=== PATIENT | male | born 1970 | race Caucasian/White ===

== ENCOUNTER 2019-07-16 14:33 | Emergency (ER) | payer OTHER ==
[~2019-07-16] VITALS: Ht 193 cm; Wt 127.0 kg
[2019-07-16] MEDS ORDERED: IBUPROFEN 600 MG TAB PO STA (14:44)
[2019-07-16] MEDS ORDERED: CLINDAMYCIN PHOS 900MG/ 50ML 50 ML IV ONE (14:44)
[2019-07-16] MEDS ORDERED: SODIUM CHLORIDE 0.9% 1000ML 1,000 ML IV SCH (14:45)
[2019-07-16] MEDS ORDERED: IBUPROFEN 400 MG TAB PO ONE (15:00)
[2019-07-16 15:05] LABS: BASOPHILS % 0.5 % (0.0-1.0); EOSINOPHILS % 0.2 % (0.0-6.0); HEMATOCRIT 44.3 % (38.2-49.6); HEMOGLOBIN 15.1 g/dL (14.0-18.0); LYMPHOCYTES # (AUTO) 0.5 (1.0-3.2); LYMPHOCYTES % 8.3 % (18.0-39.1); MEAN CORPUSCULAR HEMOGLOBIN 28.7 pg (28-32); MEAN CORPUSCULAR HGB CONC 34.1 g/dL (31-35); MEAN CORPUSCULAR VOLUME 84.2 fL (81-99); MONOCYTES # (AUTO) 0.3 (0.2-0.8); NEUTROPHILS # (AUTO) 5.3 (2.1-6.9); NEUTROPHILS % 85.4 % (38.7-80.0); PLATELET COUNT 233 x10e3/uL (140-360); RED BLOOD COUNT 5.26 x10e6/uL (4.3-5.7); RED CELL DISTRIBUTION WIDTH 13.4 % (11.7-14.4)
[2019-07-16 15:22] LABS: ANION GAP 12.8 mmol/L (8-16); BLOOD UREA NITROGEN 14 mg/dL (7-26); BUN/CREATININE RATIO 13 (6-25); CARBON DIOXIDE 27 mmol/L (22-29); CHLORIDE 101 mmol/L (98-107); CREATININE, SERUM 1.11 mg/dL (0.72-1.25); EST GLOMERULAR FILTRATION RATE > 60 ML/MIN (60-); GLUCOSE 107 mg/dL (74-118); POTASSIUM 3.8 mmol/L (3.5-5.1); SODIUM 137 mmol/L (136-145)
[2019-07-16] MEDS ORDERED: CLINDAMYCIN HC300 MG PO (15:30)
[2019-07-16 15:43] VITALS: BP 139/77
== END 2019-07-16 15:47 | disposition home or self-care (01) ==
LOC: ER 14:33
DX: L03.811 Cellulitis of head [any part, except face] (principal); R50.9 Fever, unspecified; M10.9 Gout, unspecified
CPT/HCPCS: 36415; 80048; 85025; 99283; J7030

== ENCOUNTER 2024-09-14 02:49 | Emergency (ER) | payer OTHER ==
[~2024-09-14] VITALS: Ht 193 cm; Wt 154.2 kg
[~2024-09-14 02:49] MED LIST: ALLOPURINOL100 MG PO; CLINDAMYCIN HC300 MG PO
[2024-09-14 02:55] VITALS: PULSE 85; RESP 16; TEMP 98; O2SAT 99
[2024-09-14] MEDS ORDERED: KETOROLAC TROMETHAMINE 30 MG/ML VIAL IV STA (03:29)
[2024-09-14] MEDS ORDERED: METHOCARBAMOL500 MG PO (03:36)
[2024-09-14] MEDS: KETOROLAC TROMETHAMINE 30 MG/ML VIAL IM ONE (03:54)
== END 2024-09-14 03:55 | disposition home or self-care (01) ==
LOC: FSED 03:10
DX: M43.6 Torticollis (principal); M10.9 Gout, unspecified
CPT/HCPCS: 99282; J1885